=== PATIENT | female | born 1995 | race Caucasian/White ===

== ENCOUNTER 2016-12-26 08:16 | Inpatient (IN) ==
[2016-12-26] MEDS ORDERED: ONDANSETRON 4 MG/2 ML VIAL IV PRN ×2 (08:36→14:07)
[2016-12-26] MEDS ORDERED: CITRIC ACID/SODIUM CITRATE 30 ML UDCUP PO ONE (08:40)
[2016-12-26] MEDS ORDERED: hydrOXYzine HCL 25 MG/1 ML VIAL IM PRN (08:40)
[2016-12-26] MEDS ORDERED: ePHEDrine 50 MG/ML AMP IV PRN (08:40)
[2016-12-26] MEDS ORDERED: fentaNYL 2 MCG/ROPIV 0.2% EPID 150 ML EPIDURAL SCH (08:40)
[2016-12-26] MEDS ORDERED: FAMOTIDINE 20 MG/2 ML VIAL IV ONE (08:40)
[2016-12-26] MEDS ORDERED: diphenhydrAMINE 50 MG/1 ML VIAL IV PRN (08:40)
[2016-12-26] MEDS ORDERED: BUTORPHANOL 1 MG/ML VIAL IV PRN (08:52)
[2016-12-26] MEDS ORDERED: BUTORPHANOL 1 MG/ML VIAL ONE (08:55)
[2016-12-26] MEDS: LACTATED RINGERS 1,000 ML IV SCH ×3 (09:03→09:40)
[2016-12-26 09:39] LABS: Basophils # 0.1 10*3/uL (0.0-0.2); Basophils % 0.4 % (0.0-0.8); Eosinophils # 0.1 10*3/uL (0.0-0.87); Eosinophils % 0.4 % (0.00-10.9); Hematocrit 34.8 VOL% (35.7-47.0); Hemoglobin 11.4 GM/DL (12.0-16.0); Immature Granulocytes % 1.7 %; Immature Granulocytes Absolute 0.21 #; Lymphocytes # 1.8 10*3/uL (1.4-4.0); Lymphocytes % 14.5 % (21.3-54.2); Mean Corpuscular HGB Conc 32.8 GM/DL (32-36); Mean Corpuscular Hemoglobin 26 PG (27-34); Mean Corpuscular Volume 78.2 FL (87-102); Mean Platelet Volume 12.9 FL (9.6-12.0); Monocytes # 0.6 10*3/uL (0.11-0.8); Monocytes % 4.5 % (1.7-12.7); Neutrophils % 78.5 % (38.7-73.9); Platelet Count 199 T/CUMM (130-400); Red Blood Count 4.45 MC/CUMM (3.8-5.5); Red Cell Distribution Width 13.5 % (9.3-17.3); White Blood Count 12.7 T/CUMM (4-12)
--- NOTE | 2016-12-26 12:32 | OB/GYN History & Physical ---
History of Present Illness Chief complaint: at term spontaneous rupture membranes active labor History of present illness: Ms. Sandoval is a 21 year old female 1 para 0 at term followed by Dr. Meade who is scheduled for induction next week. Patient presented to labor department was admitted by Dr. Meade with ruptured membranes vertex presentation and active labor patient is constantly transferred over to ct for care, and expected vaginal delivery Home Medications Medication Instructions Recorded Confirmed Type Vit No.130/Iron/Folic 1 each PO DAILY 12/26/16 12/26/16 History [ Vitamins] Allergies Allergy/AdvReac Type Severity Reaction Status Date / Time clarithromycin [From Biaxin] Allergy Intermediate HIVES Verified 12/26/16 08:36 12 point system: reviewed and no additional remarkable complaints except as stated Medical,Surgical,& Family Hx - Social History Smoking Status: Never smoker Frequency of Alcohol Use: None Type of Drug Use: None 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 - Constitutional General appearance: normal weight, no acute distress - Head Head exam: Present: normal inspection, normocephalic, atraumatic - Respiratory Respiratory exam: Present: clear to auscultation bilaterally - Breast Breasts: as per HPI Menstruation: as per HPI - Cardiovascular Cardiovascular exam: Present: regular rate and rhythm - GI/Abdominal GI/Abdominal exam: Present: normal bowel sounds - Extremities Exam Extremities exam: Present: normal inspection, normal capillary refill - Back Exam Back exam: Present: normal inspection - Neurological Exam Neurological exam: Present: alert, oriented X3 - Psychiatric Psychiatric exam: Present: normal affect, normal mood - Skin Skin exam: Present: normal color Assessment and Plan (1) with 39 completed weeks gestation Status: Acute Current Visit: Yes (2) Spontaneous rupture of membranes Status: Acute Current Visit: Yes (3) Active labor at term Status: Acute Current Visit: Yes Results - Labs CBC & BMP: 12/26/16 08:51
[2016-12-26] MEDS ORDERED: OXYTOCIN/LR 20 UNIT/1,000 ML BAG IV ONE ×2 (13:37→14:07)
[2016-12-26] MEDS ORDERED: ACETAMINOPHEN 325 MG TABLET PO PRN (14:07)
[2016-12-26] MEDS ORDERED: HYDROCORTISONE 2.5% RECTAL CREAM 30 GM TUBE TOP PRN (14:07)
[2016-12-26] MEDS ORDERED: oxyCODONE/ACETAMINOPHEN 5-325 MG TABLET PO PRN ×2 (14:07)
[2016-12-26] MEDS ORDERED: BISACODYL 10 MG SUPP RECTAL PRN (14:07)
[2016-12-26] MEDS ORDERED: LANOLIN 50% CREAM 0.3 OZ TUBE TOP PRN (14:07)
[2016-12-26] MEDS ORDERED: BENZOCAINE 20%/MENTHOL 0.5% SPRAY 56 GM CAN TOP PRN (14:07)
[2016-12-26] MEDS ORDERED: WITCH HAZEL PADS 100/JAR TOP PRN (14:07)
--- NOTE | 2016-12-26 14:07 | OB/GYN Progress Note ---
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 Krishnan dictating vaginal delivery After the risks benefits and alternatives were explained patient in detail and informed consent was obtained, and in LDR environment under sterile conditions, the patient progressed to completely dilated. She was allowed to push and under [epidural] anesthesia had a normal spontaneous vaginal delivery of a live born female unweighed Apgars pending over a first-degree midline episiotomy. The infant's nose and oropharynx were bulb and DeLee suctioned, and the had spontaneous cry after delivery. The cord was doubly clamped and cut and the was handed over to the pediatric team for care. Cord blood was obtained the placenta delivered spontaneously intact and IV Pitocin was done. There were no cervical tears. There were no periurethral tears. Estimated blood loss was 250 mL. The episiotomy was repaired with 2-0 Monocryl suture in usual fashion under epidural anesthesia without complication there were no complications. The bladder was emptied using a catheter prior to delivery. All sponge needle and instrument counts were correct -3 at the end of the delivery. The was taken to nursery in stable condition Results - Labs CBC & BMP: 12/26/16 08:51
[2016-12-26] MEDS ORDERED: MEASLES/MUMPS/RUBELLA VACCINE 0.5 ML VIAL SUBCUT ONE (15:00)
[2016-12-26] MEDS ORDERED: RHO(D) IMMUNE GLOBULIN 300 MCG SYRINGE IM ONE (15:00)
[2016-12-26] MEDS ORDERED: DIPH/TET/ACEL PERT BOOSTER VACCINE 0.5 ML VIAL IM ONE (15:00)
[2016-12-26] MEDS: IBUPROFEN 800 MG TABLET PO PRN (19:01)
[2016-12-26] MEDS: DOCUSATE SODIUM 100 MG CAPSULE PO SCH (21:51)
[2016-12-27 06:35] LABS: Basophils % 0.3 % (0.0-0.8); Eosinophils # 0.1 10*3/uL (0.0-0.87); Eosinophils % 0.5 % (0.00-10.9); Hemoglobin 9.1 GM/DL (12.0-16.0); Immature Granulocytes Absolute 0.12 #; Lymphocytes # 2.2 10*3/uL (1.4-4.0); Lymphocytes % 17.9 % (21.3-54.2); Mean Corpuscular HGB Conc 32.5 GM/DL (32-36); Mean Corpuscular Hemoglobin 26 PG (27-34); Mean Corpuscular Volume 79.1 FL (87-102); Mean Platelet Volume 12.5 FL (9.6-12.0); Monocytes # 0.8 10*3/uL (0.11-0.8); Monocytes % 6.3 % (1.7-12.7); Platelet Count 173 T/CUMM (130-400); Red Blood Count 3.54 MC/CUMM (3.8-5.5); Red Cell Distribution Width 13.5 % (9.3-17.3); White Blood Count 12.1 T/CUMM (4-12)
--- NOTE | 2016-12-27 07:15 | OB/GYN Progress Note ---
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: Patient is doing well she is eating ambulating and voiding She is afebrile and her vital signs are stable Her fundus is firm and contracted She has decreased lochia Assessment #1 day #1 doing well Plan continue present management with expected DC tomorrow Exam FARM OPERATIONS TECHNICAL DIRECTOR - Constitutional Vitals: Vital Signs Temp Pulse Resp BP Pulse Ox 12/27/16 04:00 97.3 F L 76 18 120/86 99 12/27/16 03:00 18 12/27/16 02:00 18 12/27/16 01:00 18 12/27/16 00:00 97.2 F L 72 18 131/70 99 12/26/16 20:00 97.7 F 71 20 122/61 99 12/26/16 17:50 98.7 F 78 20 137/76 98 Results - Labs CBC & BMP: 12/27/16 06:08
[2016-12-27] MEDS: DOCUSATE SODIUM 100 MG CAPSULE PO SCH ×2 (09:01→21:41)
[2016-12-27] MEDS: MULTIVITAMIN (PRENATAL) TABLET PO SCH (09:01)
--- NOTE | 2016-12-27 12:41 | Anesthesia Post-Op ---
Anesthesia Post OP - Post Ansesthetic Evaluation Patient seen in post op: Yes Resp: within normal limits CV: within normal limits Mental: within normal limits Temp: within normal limits [id number]: within normal limits Nausea and Vomiting: within normal limits Pain: within normal limits
[2016-12-28] MEDS: IBUPROFEN 800 MG TABLET PO PRN (00:21)
[2016-12-28] MEDS: MULTIVITAMIN (PRENATAL) TABLET PO SCH (08:23)
[2016-12-28] MEDS: DOCUSATE SODIUM 100 MG CAPSULE PO SCH (08:23)
--- NOTE | 2016-12-28 09:18 | Discharge Summary ---
Hospital Course - Hospital Course Hospital Course: patient did well. She had quick return of bowel bladder function. She remained afebrile and normotensive throughout her hospitalization. She is consequently discharged on day #2 on a regular diet. Diagnosis - Discharge Diagnosis (1) with 39 completed weeks gestation Status: Acute (2) Spontaneous rupture of membranes Status: Acute (3) Active labor at term Status: Acute Discharge Plan - Discharge Data Disposition: Disch To Home/Self Care Condition at Discharge: Stable Discharge Diet: regular diet Activity: increase activity as tolerated, other (Pelvic rest) Hygiene: may shower Weight Bearing at Discharge: full weight bearing Driving: no restrictions Contact your physician if you experience:: fever over 101, Difficulty voiding, Redness or swelling, Nausea/Vomiting, Shortness of breath, Bleeding, pain uncontrolled by pain medications - Discharge Medications New Hydrocortisone 2.5% Rectal Cr [Anusol HC Cream] 1 applic TOP QID PRN applic PRN Reason: Hemorrhoids Ibuprofen Tab [Motrin Tab] 800 mg PO Q6H PRN tablet PRN Reason: Pain Moderate (4-7) Witch Vy Pads [Tucks Pads] 1 applic TOP Q4H PRN applic PRN Reason: Hemorrhoids HYDROcodone/ACETAMIN 5-325 [Avery 5-325] 1 tablet PO Q4H PRN #15 tablet PRN Reason: Abdominal Pain Continue Vit No.130/Iron/Folic [ Tablet] 1 each PO DAILY - Follow Up or Referral Follow Up: Juan Krishnan MD [Physician] - 2 Weeks - Forms/Instructions Exam - Constitutional Vitals: Period Temp Pulse Resp BP Sys/Nichols Pulse Ox Last 24 Hr 97.3 F-98.3 F 65-90 16-20 119-129/68-88 96-100 DS: Provider Date of admission: 12/26/16 08:16 Primary care physician: . No PCP Attending physician on admission: Jake Burris Consults: 12/26/16 08:37 Consult to Anesthesiology [CONS] Routine Consulting Provider: Reason for Anesthesiology: Epidural Consult Comment: Epidural for pain managment 12/26/16 14:07 Consult to Soldering Machine Setter [CONS] Routine Consult Soldering Machine Setter: Breast Feeding Discharging clinician: Jake Burris Expected date of discharge: 12/28/16
[2016-12-28 09:25] VITALS: BP 127/74
== END 2016-12-28 11:25 | disposition home or self-care (01) | DRG 775 ==
LOC: N.LD 08:16 → N.OB 17:41
PROVIDERS: ADMIT Specialist; ATTEND Specialist

== ENCOUNTER 2019-08-11 22:56 | Inpatient (IN) ==
[2019-08-11] MEDS ORDERED: ONDANSETRON 4 MG/2 ML VIAL IV PRN (23:14)
[2019-08-11] MEDS ORDERED: BUTORPHANOL 2 MG/ML VIAL IV PRN (23:14)
[2019-08-11] MEDS: LACTATED RINGERS 1,000 ML IV SCH (23:20)
[2019-08-11] MEDS ORDERED: OXYTOCIN/LR 20 UNIT/1,000 ML BAG IV ONE (23:22)
[2019-08-11] MEDS ORDERED: AMPICILLIN 2,000 MG VIAL ONE (23:25)
[2019-08-11] MEDS ORDERED: MEPERIDINE 25 MG/1 ML VIAL ONE (23:28)
[2019-08-11] MEDS ORDERED: MEPERIDINE 25 MG/1 ML VIAL IV ONE (23:29)
[2019-08-11 23:40] LABS: Basophils # 0.1 10*3/uL (0.0-0.2); Basophils % 0.4 % (0.0-0.8); Eosinophils # 0.1 10*3/uL (0.0-0.87); Eosinophils % 0.5 % (0.00-10.9); Hematocrit 29.5 VOL% (35.7-47.0); Hemoglobin 8.7 GM/DL (12.0-16.0); Immature Granulocytes % 1.4 %; Immature Granulocytes Absolute 0.17 #; Lymphocytes # 2.3 10*3/uL (1.4-4.0); Lymphocytes % 19.6 % (21.3-54.2); Mean Corpuscular HGB Conc 29.5 GM/DL (32-36); Mean Corpuscular Volume 71.6 FL (87-102); Monocytes % 5.6 % (1.7-12.7); NRBC # 0.05 10*3/uL; Neutrophils % 72.5 % (38.7-73.9); Platelet Count 276 T/CUMM (130-400); Red Blood Count 4.12 MC/CUMM (3.8-5.5); White Blood Count 11.8 T/CUMM (4-12)
[2019-08-11] MEDS ORDERED: miSOPROStoL 200 MCG TABLET ONE (23:41)
[2019-08-11] MEDS ORDERED: PROMETHAZINE 25 MG/1 ML VIAL IM PRN (23:42)
[2019-08-11] MEDS ORDERED: NALOXONE 0.4 MG/ML VIAL IV PRN (23:42)
[2019-08-11] MEDS ORDERED: diphenhydrAMINE 50 MG/1 ML VIAL IV PRN ×2 (23:42)
[2019-08-11] MEDS ORDERED: hydrOXYzine HCL 25 MG/1 ML VIAL IM PRN (23:42)
[2019-08-11] MEDS ORDERED: FAMOTIDINE 20 MG/2 ML VIAL IV ONE (23:44)
[2019-08-11] MEDS ORDERED: CITRIC ACID/SODIUM CITRATE 30 ML UDCUP PO ONE (23:44)
[2019-08-11] MEDS ORDERED: fentaNYL 2 MCG/ROPIV 0.2% EPID 100 ML EPIDURAL SCH (23:45)
[2019-08-11 23:55] LABS: Apearance,Urine CLOUDY (Clear); Bacteria,Urine Occasional /HPF (Few); Bilirubin,Urine Negative (Negative); Blood, Urine Negative (Negative); Glucose,Urine (UA) Negative (Negative); Ketones,Urine Negative (Negative); Mucus,Urine Occasional /LPF (Occasional); Nitrite,Urine Negative (Negative); Protein,Urine Negative; RBC,Urine 1 /HPF (0-4); Squamous Epithelial Cell,Urine Few /HPF (0-10); Urine Color Yellow (Yellow); Urine Specific Gravity 1.017 (1.001-1.035); Urine Urobilinogen < 2.0 EU/DL (0.2-1.0); WBC,Urine 12 /HPF (0-6)
[2019-08-11 23:58] LABS: Alanine Aminotransferase 15 U/L (13-56); Albumin 2.6 G/DL (3.4-5.0); Alkaline Phosphatase 133 U/L (45-117); Aspartate Amino Transferase 16 U/L (0-37); Bilirubin,Total < 0.39 MG/DL (0.2-1.0); Blood Urea Nitrogen 13 MG/DL (7-18); Calcium 8.7 MG/DL (8.5-10.1); Estimated Glom Filtration Rate 119 ML/MIN; Glucose 94 MG/DL (74-106); Osmolality,Calculated 274.7 MOS/KG (273-304); Total Protein 6.9 G/DL (6.4-8.3)
[2019-08-12] MEDS ORDERED: AMPICILLIN INJ 2,000 MG in SODIUM CHLORIDE 0.9% 100 ML IV ONE
[2019-08-12] MEDS ORDERED: ePHEDrine 50 MG/ML AMP ONE (00:12)
[2019-08-12] MEDS: LACTATED RINGERS 1,000 ML IV SCH (00:17)
[2019-08-12] MEDS ORDERED: LIDOCAINE 1% 50 ML VIAL ONE (00:44)
[2019-08-12] MEDS ORDERED: MEPERIDINE 25 MG/1 ML VIAL IV ONE (00:47)
[2019-08-12] MEDS ORDERED: DIPH/TET/ACEL PERT BOOSTER VACCINE 0.5 ML VIAL IM ONE (01:04)
[2019-08-12] MEDS ORDERED: ONDANSETRON 4 MG/2 ML VIAL IV PRN (01:04)
[2019-08-12] MEDS ORDERED: ACETAMINOPHEN 325 MG TABLET PO PRN (01:04)
[2019-08-12] MEDS ORDERED: HYDROCORTISONE 2.5% RECTAL CREAM 30 GM TUBE TOP PRN (01:04)
[2019-08-12] MEDS ORDERED: BENZOCAINE 20%/MENTHOL 0.5% SPRAY 56 GM CAN TOP PRN (01:04)
[2019-08-12] MEDS ORDERED: oxyCODONE/ACETAMINOPHEN 5-325 MG TABLET PO PRN ×2 (01:04)
[2019-08-12] MEDS ORDERED: LANOLIN 50% CREAM 0.3 OZ TUBE TOP PRN (01:04)
[2019-08-12] MEDS ORDERED: WITCH HAZEL PADS 100/JAR TOP PRN (01:04)
[2019-08-12] MEDS ORDERED: RHO(D) IMMUNE GLOBULIN 300 MCG SYRINGE IM ONE (01:04)
[2019-08-12] MEDS ORDERED: MEASLES/MUMPS/RUBELLA VACCINE 0.5 ML VIAL SUBCUT ONE (01:04)
[2019-08-12] MEDS ORDERED: OXYTOCIN/LR 20 UNIT/1,000 ML BAG IV ONE (01:04)
[2019-08-12] MEDS ORDERED: BISACODYL 10 MG SUPP RECTAL PRN (01:04)
[2019-08-12 04:50] LABS: Basophils # 0.1 10*3/uL (0.0-0.2); Basophils % 0.3 % (0.0-0.8); Hematocrit 26.2 VOL% (35.7-47.0); Immature Granulocytes % 1.4 %; Immature Granulocytes Absolute 0.26 #; Lymphocytes # 1.5 10*3/uL (1.4-4.0); Lymphocytes % 7.7 % (21.3-54.2); Mean Corpuscular HGB Conc 30.5 GM/DL (32-36); Mean Corpuscular Volume 71.4 FL (87-102); Mean Platelet Volume 11.5 FL (9.6-12.0); Monocytes % 3.3 % (1.7-12.7); NRBC # 0.02 10*3/uL; Neutrophils % 87.3 % (38.7-73.9); Platelet Count 249 T/CUMM (130-400); Red Blood Count 3.67 MC/CUMM (3.8-5.5); Red Cell Distribution Width 15.9 % (9.3-17.3); White Blood Count 18.9 T/CUMM (4-12)
[2019-08-12] MEDS: DOCUSATE SODIUM 100 MG CAPSULE PO SCH ×2 (08:44→20:43)
[2019-08-12] MEDS: IBUPROFEN 800 MG TABLET PO PRN ×2 (13:59→20:45)
[2019-08-13] MEDS: DOCUSATE SODIUM 100 MG CAPSULE PO SCH (10:00)
[2019-08-13] MEDS: IBUPROFEN 800 MG TABLET PO PRN (10:02)
[2019-08-13 11:09] VITALS: BP 104/71
== END 2019-08-13 14:40 | disposition home or self-care (01) | DRG 807 ==
LOC: N.LD → N.EDINP → N.LD 22:56 → N.OB 08-12 02:45
PROVIDERS: ADMIT Specialist; ATTEND Specialist